=== PATIENT | male | born 1940 | race Caucasian/White ===

== ENCOUNTER 2020-03-11 09:17 | Outpatient (CLI) | payer MEDICARE, SELFPAY | END 2020-03-11 09:18 | disposition home or self-care (01) | PROVIDERS: PCP Internal Medicine; Visit Provider Specialist | DX: C44.629 Squamous cell carcinoma of skin of left upper limb, including shoulder (principal); C44.529 Squamous cell carcinoma of skin of other part of trunk | CPT/HCPCS: 88305 ==

== ENCOUNTER 2021-06-23 14:12 | Outpatient (CLI) | payer MEDICARE, SELFPAY | END 2021-06-23 14:13 | disposition home or self-care (01) | LOC: CHSOUTPT 14:34 | PROVIDERS: PCP Internal Medicine; Visit Provider Specialist | DX: D22.22 Melanocytic nevi of left ear and external auricular canal (principal); C44.321 Squamous cell carcinoma of skin of nose | CPT/HCPCS: 88305 ==